=== PATIENT | female | born 1980 | race Caucasian/White ===

== ENCOUNTER 2021-06-23 12:04 | Emergency (ER) | payer OTHER ==
[~2021-06-23] VITALS: Ht 172.7 cm; Wt 72.6 kg
[2021-06-23] MEDS ORDERED: FLONASE 0.05%50 MCG NARES (12:26)
[2021-06-23] MEDS ORDERED: ZINC50 M1 PO (12:27)
[2021-06-23] MEDS ORDERED: CANDICIDAL CAP1 EACH PO (12:27)
[2021-06-23] MEDS ORDERED: IRON236 MG PO (12:27)
[2021-06-23] MEDS ORDERED: FISH OIL 1,0001 EAC9 PO (12:28)
[2021-06-23] MEDS ORDERED: B12 ACTIVE1000 MCG PO (12:28)
[2021-06-23] MEDS ORDERED: LYRICA 50 MG50 MG PO (12:29)
[2021-06-23] MEDS ORDERED: TRAMADOL 50 MG50 MG PO (12:30)
[2021-06-23] MEDS ORDERED: FLEXERIL PO (12:31)
[2021-06-23] MEDS ORDERED: ZOFRAN ODT4 MG DISSOLVE (12:31)
[2021-06-23] MEDS ORDERED: IMITREX 25 MG T25 M1 PO (12:32)
[2021-06-23] MEDS ORDERED: MOBIC7.5 MG PO (13:49)
[2021-06-23] MEDS ORDERED: ZANAFLEX4 MG PO (13:49)
[2021-06-23 14:18] VITALS: BP 110/75
== END 2021-06-23 14:19 | disposition home or self-care (01) ==
LOC: ER 12:04
DX: S16.1XXA Strain of muscle, fascia and tendon at neck level, initial encounter (principal); J45.909 Unspecified asthma, uncomplicated; G43.909 Migraine, unspecified, not intractable, without status migrainosus; Z91.09 Other allergy status, other than to drugs and biological substances; Z79.899 Other long term (current) drug therapy; Z79.1 Long term (current) use of non-steroidal anti-inflammatories (NSAID); Z79.891 Long term (current) use of opiate analgesic; Z88.0 Allergy status to penicillin; Z88.8 Allergy status to other drugs, medicaments and biological substances; V89.2XXA Person injured in unspecified motor-vehicle accident, traffic, initial encounter; Y93.89 Activity, other specified; Y92.89 Other specified places as the place of occurrence of the external cause; Y99.8 Other external cause status